=== PATIENT | female | born 1965 | race Caucasian/White ===

== ENCOUNTER 2022-07-28 09:50 | Emergency (ER) | payer BC ==
[2022-07-28] MEDS ORDERED: KETOROLAC 60 MG/2 ML VIAL IM STA (10:31)
[2022-07-28] MEDS ORDERED: DEXAMETHASONE 10 MG/ML VIAL PO STA (10:31)
[2022-07-28] MEDS ORDERED: CHERRY SYRUP 10 ML UDC PO ONE (10:31)
--- NOTE | 2022-07-28 10:53 | XRAY Report ---
PROCEDURE: Ribs w/PA Chest RT INDICATIONS: trauma TECHNIQUE: 3 views of the right ribs were acquired, along with a single view chest. COMPARISON: None FINDINGS: Surgical changes and devices: None. Bones and chest wall: No fractures or dislocations. No suspicious bony lesions. Overlying soft tis sues appear unremarkable. Lungs and pleura: No pleural effusions or pneumothorax. Lungs appear clear. Mediastinum: Mediastinal contours appear normal. Heart size is normal. IMPRESSION: No obvious displaced right rib fracture is seen. No acute cardiopulmonary pathology. Reviewed by: Chandrakant Muse MD on 07/28/2022 10:51 AM PDT Approved by: Chandrakant Muse MD on 07/28/2022 10:51 AM PDT Station ID: [id number]
--- NOTE | 2022-07-28 10:59 | ED Physician Documentation ---
PD HPI CHEST PAIN - Stated complaint Stated Complaint: RIB PX/SOA - Chief complaint Chief Complaint: Trauma Ch/Bk - History obtained from History obtained from: Patient, Family - History of Present Illness Timing - onset: How many days ago (5) Timing - onset during: Light activity Timing - duration: Days (5) Timing - details: Abrupt onset, Still present Quality: Sharp, Pain Location: Right chest Radiation: No: Jaw, Neck, Back, Abdominal, Left upper extremity, Right upper extremity Improved by: Rest Worsened by: Inspiration, Movement, Palpation Associated symptoms: No: Shortness of air, Diaphoresis, Nausea, Vomiting, Feeling faint / dizzy, General Weakness, Palpitations, Cough Similar symptoms before: Has not had sx before Recently seen: Not recently seen - Additional information Additional information: 56-year-old Aspen Fung felt onto a stair 5 days ago injuring her right chest wall. She did not feel she had significant pain at the time but day by day her pain is mounted today she is having significant amount of pain that is difficult to get a full deep breath. She has not had vomiting with this she does not think she has other injuries related. She has not broken ribs previously. She is currently healthy without illness. Review of Systems Constitutional: denies: Fever Ears: denies: Ear pain Nose: denies: Rhinorrhea / runny nose, Congestion Throat: denies: Sore throat Cardiac: reports: Chest pain / pressure. denies: Palpitations, Pedal edema, Calf pain Respiratory: denies: Dyspnea, Cough, Wheezing GI: denies: Abdominal Pain, Nausea, Vomiting, Constipation, Diarrhea PD PAST MEDICAL HISTORY - Present Medications Home Medications: Ambulatory Orders Medication Instructions Recorded Confirmed HYDROcod/ACETAM 5/325 [[place] 5/325] 1 - 2 tablet PO Q6H PRN #14 tablet 07/28/22 - Allergies Allergies/Adverse Reactions: Allergies Allergy/AdvReac Type Severity Reaction Status Date / Time No Known Drug Allergies Allergy Verified 07/28/22 10:09 PD ED PE NORMAL - Vitals Vital signs reviewed: Yes (Hypertensive mild) - General General: Alert and oriented X 3, No acute distress, Well developed/nourished - HEENT HEENT: Atraumatic, PERRL, EOMI - Neck Neck: Supple, no meningeal sign, No bony TTP - Cardiac Cardiac: RRR, No murmur - Respiratory Respiratory: No respiratory distress, Clear bilaterally, Other (There is chest wall tenderness to the right lateral chest wall over the ribs and not over the abdomen.) - Abdomen Abdomen: Normal bowel sounds, Soft, Non tender, Non distended, No organomegaly - Back Back: No CVA TTP, No spinal TTP - Derm Derm: Normal color, Warm and dry, No rash - Extremities Extremities: No deformity, Normal ROM s pain, No edema - Neuro Neuro: Alert and oriented X 3, 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 No acute cardiopulmonary pathology.), EMP independent interpretation of test PD Medical Decision Making - ED course Complexity details: reviewed results, re-evaluated patient, considered ronald skelton, d/w patient, d/w family Reviewed Lab Results: We reviewed a PA chest with right ribs and found no evidence of fracture, hemo or pneumothorax or infiltrate.I interpreted this to indicate a chest wall contusion without fracture. ED course: 56-year-old female with a fall onto her right ribs presents to the emergency department in a predictable fashion on day #5. She has tenderness specific to ribs on the right side she has no evidence of fracture or hemo or pneumothorax on plain film and she response to treatment with the use of dexamethasone and Toradol. We will provide some pain medication for the patient to use to provide adequate deep breathing. Departure - Departure Disposition: 01 Home, Self Care Clinical Impression: Contusion of chest wall Qualifiers: Encounter type: initial encounter Laterality: right Qualified Code(s): S20.211A - Contusion of right front wall of thorax, initial encounter Condition: Stable Instructions: ED Contusion Rib Follow-Up: Your, primary care doctor [Other] Prescriptions: HYDROcod/ACETAM 5/325 [[place] 5/325] 1 - 2 tablet PO Q6H PRN #14 tablet PRN Reason: Pain Comments: Aspen, today it looks like you have contused your chest wall and we did not find evidence of a rib fracture or evidence of pneumonia or collapsed lung. Today we provided some dexamethasone which should help with your pain today and we have provided some Toradol which is an anti-inflammatory similar to ibuprofen. My recommendation for control of your pain is to take ibuprofen with food and if this is in adequate take some of the [place] I have E scribed to the [facility] in [place]. This chest wall contusion will likely give you some pain especially with activity for the next month. It is recommended to do deep breathing several times per day and my recommendation is to do this after you have taken your pain medication. The expectation is improvement and not worsening. Discharge Date/Time: 07/28/22 11:50
[2022-07-28 11:56] VITALS: BP 128/78
== END 2022-07-28 11:50 | disposition home or self-care (01) ==
LOC: ED 09:50
DX: S20.211A Contusion of right front wall of thorax, initial encounter (principal); W10.9XXA Fall (on) (from) unspecified stairs and steps, initial encounter
CPT/HCPCS: 71101; 96372; 99283; 99284; A9270